=== PATIENT | female | born 1960 | race Caucasian/White ===

== ENCOUNTER → 2024-01-06 12:32 | Outpatient (REF) | payer OTHER, SELFPAY | LOC: WDC 12:32 | PROVIDERS: ATTENDING PHYSICIAN Family Medicine | DX: Z12.31 Encounter for screening mammogram for malignant neoplasm of breast (principal) | CPT/HCPCS: 77063; 77067 ==

== ENCOUNTER 2024-06-22 12:29 | Emergency (ER) | payer OTHER, SELFPAY ==
[2024-06-22 12:48] VITALS: BP 100/52
[2024-06-22 14:00] LABS: ALT (SGPT) 26 U/L (0-35); AST (SGOT) 38 U/L (14-36); Alkaline Phosphatase 87 U/L (38-126); Blood Urea Nitrogen 10 mg/dl (7-17); Calcium 9.4 mg/dl (8.4-10.2); Carbon Dioxide 32 mmol/L (22-30); Chloride 104 mmol/L (98-107); Glucose 98 mg/dl (70-99); Potassium 4.3 mmol/L (3.5-5.1); Sodium 138 mmol/L (135-145); Total Bilirubin 0.1 mg/dl (0.2-1.3); Total Protein 7.8 g/dl (6.3-8.2); eGFR > 60.00
[2024-06-22 14:05] LABS: Hematocrit 42.5 % (37.0-47.0); Hemoglobin 14.1 g/dL (12.0-16.0); Mean Corp Hgb Conc. 33.2 g/dL (33.0-37.0); Mean Corpuscular Volume 96.4 fL (81.0-99.0); Mean Platelet Volume 9.3 fL (7.4-10.4); Platelet Count 252 10^3/uL (130-400); Red Blood Cell Count 4.41 10^6/uL (4.20-5.40); Red Cell Dist. Width 12.3 % (11.5-14.5); White Blood Cell Count 4.2 10^3/uL (4.8-10.8)
[2024-06-22 14:26] LABS: % Basophils 0.7 % (0-2); % Eosinophils 1.4 % (0-6); % Immature Granulocytes 0.2 % (0-0.5); % Lymphocytes 53.6 % (20.5-51.1); % Monocytes 11.1 % (1.7-9.3); Absolute Eosinophils 0.1 10^3/uL (0-0.7); Absolute Lymphocytes 2.3 10^3/uL (1.2-3.4); Absolute Monocytes 0.5 10^3/uL (0.1-0.6); Absolute Neutrophils 1.4 10^3/uL (1.4-6.5); Nucleated Red Blood Cells % 0 %
[2024-06-22 16:19] VITALS: BMI 20.6
[2024-06-22 16:27] VITALS: BP 110/44
[2024-06-22 17:00] VITALS: BP 97/50
[2024-06-22 17:03] LABS: Lactic Acid 0.6 mmol/L (0.7-2.0)
[2024-06-22] MEDS: NSS 1000 IV (17:09)
[2024-06-22 17:17] LABS: Troponin I < 0.012 ng/ml
[2024-06-22 17:27] LABS: COVID-19 Antigen Negative (Negative)
[2024-06-22 17:35] LABS: TSH Reflex To Free T4 < 0.02 uIU/ml (0.47-4.68)
[2024-06-22 18:00] VITALS: BP 108/61
[2024-06-22 18:43] LABS: Free T4 1.13 ng/dl (0.78-2.19)
[2024-06-22 20:00] VITALS: BP 109/60
[2024-06-22 20:11] LABS: Urine Albumin Trace (Neg - Trace); Urine Bilirubin Negative (Negative); Urine Character Clear (Clear); Urine Color Yellow; Urine Glucose Negative (Negative); Urine Ketone Negative (Negative); Urine Leukocyte 1+ (Negative); Urine Nitrite Negative (Negative); Urine Occult Blood Negative (Negative); Urine Specific Gravity 1.025 (<1.030); Urine Urobilinogen Negative (Neg - 1+)
[2024-06-22 20:20] LABS: Urine Mucus Many; Urine Red Blood Cell 0-2 /HPF (0-2)
[2024-06-22 20:21] LABS: Urine Bacteria Few (Negative)
--- NOTE | 2024-06-22 20:31 | ED.GENMED ---
History of Present Illness
General
Chief Complaint: Blood Pressure Problem
Source: patient, records and spouse
Exam Limitations: none
Time Seen by Provider: 06/22/24 16:09
Nursing documentation reviewed up to this point in time: agreed with
History of Present Illness
History of Present Illness:
63-year-old female with past medical history of chronic fatigue syndrome, POTS who presents to the emergency department with her for evaluation of lethargy and confusion. Patient has had worsening positional lightheadedness for quite some
time that has been attributed to POTS. Apparently last week has been says they noticed blood pressure was more labile with positional change dropping as low as the 70s. Apparently PCP prescribed midodrine 3 times daily 4 days ago which she has
been taking since. 3 days ago says he noticed that she was having increased lethargy and weakness. She has been essentially bedbound for the past 3 days and is not dressing herself or feeding herself. He says that she feels 'foggy' and
mildly confused. She says that she feels very weak and tired. Apparently she has had sporadic lethargy with her chronic fatigue syndrome but not typically to this degree. She has not had any cough, sore throat. states tactile fever but
has not checked her temperature. She denies any chest pain, shortness of breath. Denies any abdominal pain. Denies any vomiting or diarrhea. She denies any UTI symptoms. She denies any other specific complaints.
Past History
Past History
ED Past Medical History: Psychiatric and Other (Chronic fatigue syndrome, insomnia)
ED Past Surgical History: Tonsilectomy and Other (Breast augmentation)
Social History
Tobacco: Non-smoker
Alcohol: None
Personal:
Living: with family
Employment: Not employed
Family History
Family History: Other (Noncontributory)
Review of Systems
Review of Systems
All Other Systems: ROS reviewed and negative except as documented in HPI and ROS
Constitutional: Reports fever (Tactile) and fatigue
Respiratory: Denies cough or trouble breathing
Cardiac: Denies chest pain or palpitations
ABD/GI: Denies abdominal pain, nausea, vomiting or diarrhea
: Denies dysuria, frequency or flank pain
Musculoskeletal: Denies neck pain or back pain
Neurological: Reports other (Brain fog/lethargy); Denies headache
Phy Exam
Physical Exam
Physical Exam:
General: Awake, alert, oriented x3; no acute distress
Head: Normocephalic, atraumatic
Eyes: Conjunctiva normal, pupils equal round and reactive to light bilaterally
Throat: Airway intact, handling secretions
Neck: Trachea midline, supple without meningismus
Lungs: Clear to auscultation bilaterally, no wheezing, rales, rhonchi
Heart: Regular rate and rhythm, no murmurs, gallops, or rubs
Abd: Soft, non distended, nontender
Neuro: Generally lethargic but oriented and follows commands; cranial nerves intact, speech is fluid, generally weak throughout but no focal motor deficit, strength is symmetric in all extremities; sensory exam intact
Skin: no rash
Extremities: No edema in extremities, equal pulses in all extremities
Scores
Heart Failure Risk
Heart Failure Risk Score: Not Applicable
Heart Score for Chest Pain Patients
STEMI patient?: Not applicable
Withdrawal Assessment of Alcohol
Withdrawal Assessment Completed?: Not applicable
Course
Orders/Labs/Results
Orders:
Orders
06/22/24 12:30
Electrocardiogram (*1) Urgent
Reason for Study: Fatigue / Weakness
06/22/24 12:31
EKG- Treatment ONCE
06/22/24 13:17
CBC/With Diff [Complete Blood Count/With Diff] Urgent
Comprehensive Metabolic Panel Urgent
06/22/24 16:28
COVID-19 Antigen Urgent
Source: Nasal Swab
Free T4 Urgent
Lactate Level [Lactic Acid] Urgent
TSH Reflex To Free T4 Urgent
Troponin I Urgent
Influenza A+B Rapid Molecular Urgent
HARINDER Source: Nasal Swab
Specimen Description:
06/22/24 17:02
CT Head W/o Iv Contrast Urgent
Comment:
Reason For Exam: confused/lethargic
0.9% Sodium Chloride 1000 ml [Nss] 1,000 ml IV BOLUS
06/22/24 19:58
Urinalysis Reflex To Culture Urgent
Date Specimen was Collected: 06/22/24
Time Specimen was Collected: 19:54
Urine Microscopic Reflex Cult Urgent
Urine Culture Urgent
HARINDER Source: U
Specimen Description:
Date Specimen was Collected: 06/22/24
Time Specimen was Collected: 19:54
06/22/24 20:42
CR Chest Portable - 1 View Urgent
Comment:
Reason For Exam: weakness
Reason Study Needs to be Portable: Unable to Transport
Abnormal Lab Results
06/22/24 06/22/24 06/22/24
13:17 16:28 19:58
WBC 4.2 L 10^3/uL
(4.8-10.8)
MCH 32.0 H pg
(27.0-31.0)
Neutrophils % 33.0 L %
(42.2-75.2)
Lymphocytes % 53.6 H %
(20.5-51.1)
Monocytes % 11.1 H %
(1.7-9.3)
Carbon Dioxide 32 H mmol/L
(22-30)
Lactic Acid 0.6 L mmol/L
(0.7-2.0)
Total Bilirubin 0.1 L mg/dl
(0.2-1.3)
AST 38 H U/L
(14-36)
TSH (Reflex) < 0.02 L uIU/ml
(0.47-4.68)
Leukocyte Esterase Rfl 1+ A
(Negative)
Urine WBC (Reflex) 11-15 A /HPF
(0-5)
Urine Bacteria (Reflex) Few A
(Negative)
06/22/24 13:17
06/22/24 13:17
Vital Signs
Initial and Last Documented VS:
Initial Vital Signs
Temp Pulse Resp BP Pulse Ox
36.7 C 55 16 100/52 95
06/22/24 12:48 06/22/24 12:48 06/22/24 12:48 06/22/24 12:48 06/22/24 12:48
Last Documented Vital Signs
Temp Pulse Resp BP Pulse Ox
36.7 C 54 10 109/60 94
06/22/24 12:48 06/22/24 20:00 06/22/24 16:27 06/22/24 20:00 06/22/24 19:45
MDM/Problems Addressed
Differential Diagnosis Includes:
Wide differential for generalized weakness includes but not limited to: Infection such as viral syndrome, pneumonia, UTI; stroke/brain bleed considered less likely clinically; chronic fatigue syndrome, dehydration, dysrhythmia, adrenal insufficiency
MDM/Problems Addressed:
63-year-old female presents for evaluation of increased generalized weakness and lethargy, mild confusion over the past few days; started midodrine for hypotension/POTS prior to onset. Soft blood pressure here 100/52 but otherwise normal vitals.
Physical exam as above. We sent off labs including a CBC and a CMP�no clinically significant abnormalities. EKG shows sinus rhythm, troponin is undetectable. Thyroid studies showed low TSH but normal T4. Urinalysis essentially equivocal for
infection�appears contaminated but there are few bacteria and white cells. In the absence of urinary symptoms we will hold on antibiotics and follow culture. COVID and flu negative. Chest x-ray no acute disease. CT head negative. No clear
identified cause for her symptoms. We gave her fluids and blood pressure did improve as did her clinical exam. On my clinical reassessment after fluids patient now much more awake alert and talking to me and she says she feels much better. I had
a long discussion with the patient and �possible she has some viral syndrome of the non-COVID/flu variety that is causing him to feel more weak or perhaps she is not taking enough fluids and she was mildly dehydrated. Likely CFS is a
confounding factor here. I offered admission for observation in the hospital but patient says she feels well enough to go home and prefers to go home. I think this is a reasonable plan at this point. feels comfortable with this as well.
Using shared decision making we will discharge although we did speak about strict return precautions.
Chronic conditions affecting care:
Chronic fatigue syndrome
*Radiology
Radiology exam reviewed: preliminary read by ED provider and radiology read reviewed
*Pulse Oximetry
Patient hypoxic: no
*EKG
Interpreted by ED Provider?: Yes
Heart Rate: 50
Rate: bradycardiac
Rhythm: sinus
[place]: normal axis
Interval: normal interval
QRS Pattern: normal QRS
Ischemia: other (Nonspecific T wave abnormality)
*Critical Care Note
Total Time (30-74mins, 75-104mins- exclusive of procedures): Not Applicable
Data Reviewed
Review of Other/Old Records Reveals: Labs and Records
Source: patient, records and spouse
Patient Management
Discussion with other providers: Hospitalist (Discussed with hospitalist)
Escalation/DeEscalation of care consider admission/obs:
Admission indicated
ED Attending Note
-
Portions of this chart may have been created with voice recognition software.� Occasional wrong word or��sound alike� substitutions may have occurred due to the inherent limitations of voice recognition software.
Discharge Plan
Departure
Patient Disposition: Home (Routine Discharge)
Date of Disposition: 06/22/24
Time of Disposition: 20:54
Patient with high blood pressure during this ER visit?: No
Discharge Problem:
Lethargy, Dehydration
Instructions: Fatigue ED, Dehydration in adults - ED discharge instructions
Prescriptions:
No Action
clonazepam 1 MG tablet
0.5 mg PO HS
trazodone 100 MG tablet
200 mg PO HS
tramadol 100 MG tablet
100 mg PO BID
docusate sodium [Colace] 100 mg Capsule
100 mg PO DAILY
magnesium 200 mg Tablet
400 mg PO DAILY
melatonin 5 mg Tablet
5 mg PO HS PRN (Reason: sleep)
Referrals:
Cj Rivera DO [Family Provider] - Follow up in 2-3 days
Activity Restrictions/Additional Instructions:
Thank you for visiting the Emergency Department at [facility].
1. Please schedule a follow up appointment as directed. Call first thing tomorrow morning to make an appointment.
2. If indicated, please take your medications as instructed and indicated on discharge paperwork.
3. If any of your symptoms do not improve, or persist, or become more severe within 6-12 hours, please return to the emergency department for further care.
4. Please return to the emergency department if you develop a headache, neck pain/stiffness, fever greater than 100.4F, chest pain, shortness of breath, persistent nausea, vomiting, slurred speech, difficulty walking, numbness/tingling, weakness,
signs of infection or any other symptoms that are worrisome to you.
Please call [phone] if you have any questions.
Interventions
Interventions:
*Risk Screen - Suicide Last Done: 06/22/24 12:48
*General Assessment Last Done: 06/22/24 16:19
*Neglect/Abuse Screening Last Done: 06/22/24 12:48
ED- Fall Risk Assessment Last Done: 06/22/24 16:19
*ED COVID-19 Vaccine History Last Done: 06/22/24 16:19
ED- Cardiac Assessment Last Done: 06/22/24 16:19
ED- Neurological Assessment Last Done: 06/22/24 19:46
ED- Pulmonary Assessment Last Done: 06/22/24 16:19
Discharge Date and Time
Print Language: [place]
[2024-06-22 21:09] VITALS: BP 130/70
== END 2024-06-22 21:14 | disposition home or self-care (01) ==
LOC: EMR 12:29
PROVIDERS: Emergency Medicine; EMERGENCY PHYSICIAN Emergency Medicine; FAMILY PHYSICIAN Family Medicine
DX: E86.0 Dehydration (principal); G93.32 Myalgic encephalomyelitis/chronic fatigue syndrome
CPT/HCPCS: 99285; 96360; 70450; 71045; 80053; 81003; 81015; 83605; 84439; 84443; 84484; 85025; 87086; 87502; 87811; 93005

== ENCOUNTER → 2024-12-24 13:27 | Outpatient (REF) | payer MEDICARE, OTHER, SELFPAY | LOC: RAD 13:27 | PROVIDERS: ATTENDING PHYSICIAN Family Medicine | DX: R22.41 Localized swelling, mass and lump, right lower limb (principal) | CPT/HCPCS: 93971 ==

== ENCOUNTER 2025-03-10 15:59 | Inpatient (IN) | payer MEDICARE, OTHER, SELFPAY ==
[2025-03-10 12:19] VITALS: BP 111/62
[2025-03-10 12:39] VITALS: BMI 18.7
[2025-03-10 12:41] LABS: Hematocrit 41.7 % (37.0-47.0); Hemoglobin 13.7 g/dL (12.0-16.0); Mean Corp Hgb Conc. 32.9 g/dL (33.0-37.0); Mean Corpuscular Volume 94.3 fL (81.0-99.0); Nucleated Red Blood Cells % 0 %; Platelet Count 239 10^3/uL (130-400); Red Cell Dist. Width 12.0 % (11.5-14.5)
[2025-03-10 12:59] LABS: ALT (SGPT) 21 U/L (0-35); AST (SGOT) 27 U/L (14-36); Albumin 4.1 g/dl (3.5-5.0); Alkaline Phosphatase 61 U/L (38-126); Blood Urea Nitrogen 12 mg/dl (7-17); Calcium 9.1 mg/dl (8.4-10.2); Carbon Dioxide 32 mmol/L (22-30); Chloride 102 mmol/L (98-107); Estimated Creatinine Clearance 55 ml/min; Glucose 86 mg/dl (70-99); Potassium 4.1 mmol/L (3.5-5.1); Sodium 138 mmol/L (135-145); Total Protein 6.7 g/dl (6.3-8.2); eGFR > 60.00
[2025-03-10 13:00] VITALS: BP 107/46
[2025-03-10] MEDS: NSS 1000 IV ×2 (13:11→15:28)
[2025-03-10 13:14] LABS: Troponin I < 0.012 ng/ml
[2025-03-10 14:00] VITALS: BP 103/45
--- NOTE | 2025-03-10 14:13 | ED.GENMED ---
History of Present Illness
General
Chief Complaint: Chest Pain
Source: patient and spouse
Exam Limitations: none
Time Seen by Provider: 03/10/25 12:36
Nursing documentation reviewed up to this point in time: agreed with
History of Present Illness
History of Present Illness:
64-year-old female chronic fatigue fibromyalgia POTS 2 days ago had some chest pressure for about 20 minutes resolved on its own slept all day yesterday and today had another 10 to 15 minutes of chest pressure and generally tired, POTS symptoms are
better since she was started on midodrine, had been on IVIG which has not been covered by her recent insurance, patient and spouse state the symptoms that she has been having towards the pain are different than her chronic fatigue and fibromyalgia,
no fevers, although she has been eating or drinking very much, normal urination, had cataract surgery a few weeks ago still using her cataract glasses
Past History
Past History
ED Past Medical History: Psychiatric and Other (Chronic fatigue syndrome, insomnia POTS)
ED Past Surgical History: Tonsilectomy and Other (Breast augmentation)
Social History
Tobacco: Non-smoker
Alcohol: None
Drug: None
Personal:
Living: with family
Employment: Not employed
Family History
Family History: CAD (Father with CAD bypass)
Review of Systems
Review of Systems
All Other Systems: Not applicable
Constitutional: Reports fatigue; Denies fever
EENT: Reports no symptoms
Respiratory: Reports no symptoms
Cardiac: Reports chest pain (Chest pressure)
ABD/GI: Reports no symptoms
: Reports no symptoms
Musculoskeletal: Reports no symptoms
Skin: Reports no symptoms
Neurological: Reports weakness
Endocrine: Reports no symptoms
Phy Exam
Physical Exam
Physical Exam:
Physical Exam
General: 64 female chronically ill-appearing
Neck: No jaw
Heart: s1/s2 regular rate and rhythm, no murmur. equal radial pulses.
Lungs: no acute respiratory distress. clear bilaterally
Abdomen: Not tender
Neuro: Globally weak moving all extremities
Skin: no rash
Psychiatric: Flat affect,
Extremities: no edema.
Course
Orders/Labs/Results
Orders:
Orders
03/10/25 12:11
Electrocardiogram (*1) Urgent
Reason for Study: Chest Pain
EKG- Treatment ONCE
03/10/25 12:26
Electrocardiogram (*1) Urgent
Reason for Study: Chest Pain
EKG- Treatment ONCE
IV Insert/Care/Rem.- Treatment PRN
O2 Therapy [RESP] Urgent
Titrate/Wean O2 to maintain O2 sat greater than (%): 90
Special Instructions: Maintain sats >/=90%
03/10/25 12:34
Complete Blood Count/With Diff Urgent
Comprehensive Metabolic Panel Urgent
Troponin I Urgent
03/10/25 13:06
Urinalysis Reflex To Culture Urgent
Date Specimen was Collected: 03/10/25
Time Specimen was Collected: 13:06
0.9% Sodium Chloride 1000 ml [Nss] 1,000 ml IV BOLUS
CR Chest Portable - 1 View Urgent
Comment:
Reason For Exam: faiguge
Reason Study Needs to be Portable: Patient Unstable
03/10/25 15:15
Troponin I Urgent
03/10/25 15:16
NSS 1000mL Bolus WIDE OPEN 0.9% Sodium Chloride 1000 ml [Nss] 1,000 ml IV BOLUS
Abnormal Lab Results
03/10/25
12:34
MCHC 32.9 L g/dL
(33.0-37.0)
Neutrophils % 40.7 L %
(42.2-75.2)
Monocytes % 9.7 H %
(1.7-9.3)
Carbon Dioxide 32 H mmol/L
(22-30)
03/10/25 12:34
03/10/25 12:34
Vital Signs
Initial and Last Documented VS:
Initial Vital Signs
Temp Pulse Resp BP Pulse Ox
98.1 F 50 20 111/62 97
03/10/25 12:19 03/10/25 12:19 03/10/25 12:19 03/10/25 12:19 03/10/25 12:19
Last Documented Vital Signs
Temp Pulse Resp BP Pulse Ox
98.1 F 43 13 103/45 99
03/10/25 12:19 03/10/25 14:45 03/10/25 14:00 03/10/25 14:00 03/10/25 14:45
MDM/Problems Addressed
Differential Diagnosis Includes:
Dehydration pneumonia UTI conceivably heart or lung process
MDM/Problems Addressed:
Chest pressure
Chronic conditions affecting care:
POTS fibromyalgia
Acute Exacerbation and/or Progression of Chronic Illness:
POTS fibromyalgia
*Pulse Oximetry
SaO2: 97
Oxygen Mode of Delivery: Room air
Patient hypoxic: no
*EKG
Interpreted by ED Provider?: Yes
Interpretation: normal
Comparison EKG: no comparison EKG present
Heart Rate: 70
Rate: normal
Rhythm: sinus
[place]: normal axis
Ischemia: no ischemia
*Annual Giving Officer Interpretation
Rate: normal
Interpretation: normal
Heart Rate: 70
Rhythm: sinus
*Critical Care Note
Total Time (30-74mins, 75-104mins- exclusive of procedures): Not Applicable
Update Note
Update Note:
3:15 PM labs noted chest x-ray noted troponin noted EKG noted patient patient still somewhat somnolent
Has not really been out of bed for a few days, not eating or drinking much
ED Attending Note
-
Portions of this chart may have been created with voice recognition software.� Occasional wrong word or��sound alike� substitutions may have occurred due to the inherent limitations of voice recognition software.
Discharge Plan
Departure
Patient Disposition: Admit
Date of Disposition: 03/10/25
Time of Disposition: 15:17
Admit to: Med/Surg
Presentation/result/management discussed w/ accepting MD/DO: Hospitalist
Patient with high blood pressure during this ER visit?: No
Discharge Problem:
Adult failure to thrive
Prescriptions:
No Action
clonazepam 1 MG tablet
0.5 mg PO HS
trazodone 100 MG tablet
200 mg PO HS
tramadol 100 MG tablet
100 mg PO BID
docusate sodium [Colace] 100 mg Capsule
100 mg PO DAILY
magnesium 200 mg Tablet
400 mg PO DAILY
melatonin 5 mg Tablet
5 mg PO HS PRN (Reason: sleep)
Referrals:
Cj Rivera DO [Family Provider, Family Practice]
Interventions
Interventions:
*Risk Screen - Suicide Last Done: 03/10/25 13:00
*General Assessment Last Done: 03/10/25 12:19
*Neglect/Abuse Screening Last Done: 03/10/25 13:00
ED- Cardiac Assessment Last Done: 03/10/25 12:37
Discharge Date and Time
Print Language: KYRGYZ
[2025-03-10 15:00] VITALS: BP 111/56
--- NOTE | 2025-03-10 15:27 | HPS.HSE ---
Family Physician
-
Family Physician: Cj Rivera, DO
Chief Complaint
-
Chest pain, fatigue
History of Present Illness
64-year-old female with fibromyalgia, POTS, anxiety, H/O Lyme disease presenting to the hospital with a complaint of chest discomfort and fatigue. Describes chest pressure for about 20 minutes while at home that resolved on its own and was followed
by fatigue, patient slept all day yesterday. Today mentions another similar occurrence of 10 to 15 minutes of chest pressure associated with fatigue. Was recently started on midodrine for POTS with improvement, previously was on IVIG though not
covered by her insurance. Patient and partner states that pain with these episodes are different from her chronic pain syndrome. Denies fevers or chills, denies urinary issues, denies dyspnea. States oral intake has been low over the last couple
of days. Upon arrival was bradycardic with heart rate near 43/min though otherwise hemodynamically stable and on room air without fever. ECG showed sinus bradycardia without any other abnormal findings including ischemic changes. Chest x-ray
taken in the ED without any signs of acute abnormalities on my prelim read. Labs were benign including initial troponin negative. Urinalysis pending. Was started on IV normal saline in the ED.
Medical History
Past Medical History
Past Medical History: Reports Other
Additional Past Medical History:
Fibromyalgia
POTS
Anxiety
History of Lyme disease
Past Surgical History: Reports Other
Additional Past Surgical History:
Tonsillectomy
Breast augmentation
Social History
Tobacco: Non-smoker
Alcohol: None
Drug: None
Personal:
Living: With Family
Family History
Family History: CAD (Father)
Allergies / Home Medications
Allergies reflects when Allergies were last updated in [employer].
Home Medications with original date entered in [employer]
Allergy/Medication List:
Allergies
Allergy/AdvReac Type Severity Reaction Status Date / Time
ciprofloxacin (From Cipro) Allergy Unknown Verified 03/10/25 12:19
Home Medications
clonazepam 1 mg tablet 0.5 mg PO HS Sleep 11/29/17
trazodone 100 mg tablet 200 mg PO HS Depression 11/29/17
tramadol 100 mg tablet 100 mg PO BID Pain 10/04/19
docusate sodium 100 mg capsule (Colace) 100 mg PO DAILY Constipation 01/29/22
magnesium 200 mg tablet 400 mg PO DAILY Supplement 01/29/22
melatonin 5 mg tablet 5 mg PO HS PRN sleep 01/29/22
Review of Systems
-
History Source: Patient
A 12 point ROS was completed and negative except as noted: Yes
Constitutional: Reports See HPI
EENT: Reports No Symptoms
Respiratory: Reports No Symptoms
Cardiac: Reports See HPI
Abdomen/GI: Reports No Symptoms
: Reports No Symptoms
Musculoskeletal: Reports See HPI
Skin: Reports No Symptoms
Neurological: Reports No Symptoms
Endocrine: Reports No Symptoms
Hematologic/Lymphatic: Reports No Symptoms
Psych: Reports No Symptoms
Physical Exam
Vital Signs
Vital Signs
Temp Pulse Resp BP Pulse Ox
98.1 F 43 13 103/45 99
03/10/25 12:19 03/10/25 14:45 03/10/25 14:00 03/10/25 14:00 03/10/25 14:45
Physical Exam
General: Well Developed, No Apparent Distress, Appears Chronically Ill and Cachectic
HEENT: NormoCephalic, Anicteric, Moist mucous membranes, Atraumatic and PERRLA
Respiratory: Clear and Non Labored Respirations; No Accessory Resp Muscle Use
Cardiac: S1/S2, Regular Rhythm and Bradycardia; No Murmur, Rub, Gallop or Peripheral Edema
GI: Soft, Non Tender, Non Distended and Normal Bowel Sounds
Musculoskeletal: No Clubbing and No Cyanosis
Skin: Warm and Dry; No Rash or Lesions
Neuro: AO x 3, Nonfocal/grossly intact and Cranial Nerves Intact; No Tremors
Psych: Anxious
Laboratory Results
-
03/10/25 12:34
03/10/25 12:34
Laboratory Results
Total Bilirubin 0.5 mg/dl (0.2-1.3) 03/10/25 12:34
AST 27 U/L (14-36) 03/10/25 12:34
ALT 21 U/L (0-35) 03/10/25 12:34
Alkaline Phosphatase 61 U/L (38-126) 03/10/25 12:34
Troponin I < 0.012 ng/ml 03/10/25 12:34
Data Reviewed
-
Lab Data: Labs Reviewed by me, Discussed with Physician (ED attending) and Discussed with Patient
Impression/Plan
-
#Chest pain
#Fatigue
#Sinus bradycardia
- Low suspicion for ACS or other cardiac causes; possibly MSK phenomenon v. fibromyalgia
- Atypical chest pain; ECG nonischemic, initial troponin was negative at <0.12
- No known history of ASCVD or CAD though has family history with her father
- Continue to trend troponin with serial ECG for now, monitor tele
- Monitor for chronotropic incompetence with ambulation
- Avoid AVN blockade with bradycardia
- Check TTE and TSH
- Monitor on telemetry
- Consider cards consult
#Protein calorie malnutrition
#Failure to thrive
- Unclear cause, possibly psychiatric related
- BMI 18.7 here, down from near 20.7 in May
- States that over the last few days she has not been eating or drinking
- Will start maintenance IV fluids and encourage oral intake
- Hold parameters to sedating medications added
- Ensure with meals, calorie counts
- Follow-up flu, COVID, urinalysis
- Consider psych consult
#Fibromyalgia
- Home regimen includes tramadol 100 mg twice daily for pain, trazodone 200 mg/clonazepam 0.5 mg nightly for sleep
- Question if her home medication regimen is sedating her, especially without much food intake recently
- Monitor mental status and pain regimen, titrate home regimen accordingly
#POTS
- Unclear etiology, was previously on IVIG as outpatient possibly for suspected immune-mediated component
- Was started on midodrine recently as an outpatient which she states has helped her hemodynamics
- Will continue with home midodrine 5 mg BID here, monitor on telemetry
#Insomnia
#Anxiety
- Home regimen includes tramadol, melatonin, clonazepam
- Stable, continue with home
#History of Lyme disease
- Question post Lyme disease syndrome as etiology of her fatigue and pain
Diet: Regular, Ensure AC
DVT: SQ Lovenox
CODE STATUS: Full
Disposition: Admit to telemetry
Discussed with ED attending
[2025-03-10 15:30] VITALS: BP 112/58
[2025-03-10 16:10] LABS: Troponin I < 0.012 ng/ml
[2025-03-10 16:28] LABS: COVID-19 Antigen Negative (Negative)
[2025-03-10 16:50] LABS: Urine Character Clear (Clear)
== END 2025-03-10 18:52 | disposition home or self-care (01) | DRG 641 ==
LOC: ED 15:59
PROVIDERS: Nurse Practitioner Family; ADMITTING PHYSICIAN Internal Medicine; EMERGENCY PHYSICIAN Emergency Medicine; FAMILY PHYSICIAN Family Medicine
DX: E46 Unspecified protein-calorie malnutrition (principal); Z68.1 Body mass index [BMI] 19.9 or less, adult; G89.4 Chronic pain syndrome; G93.32 Myalgic encephalomyelitis/chronic fatigue syndrome; G90.A Postural orthostatic tachycardia syndrome [POTS]; R62.7 Adult failure to thrive; M79.7 Fibromyalgia; Z11.52 Encounter for screening for COVID-19; F41.9 Anxiety disorder, unspecified; G47.00 Insomnia, unspecified; Z86.19 Personal history of other infectious and parasitic diseases; Z79.899 Other long term (current) drug therapy; Z82.49 Family history of ischemic heart disease and other diseases of the circulatory system
CPT/HCPCS: 71045; 80053; 81003; 84484; 85025; 87086; 87502; 87811; 93005